=== PATIENT | female | born 1985 | race Caucasian/White ===

== ENCOUNTER 2019-11-07 07:30 | Inpatient (IN) ==
[2019-11-09] MEDS ORDERED: CITRIC ACID/SODIUM CITRATE 30 ML UDCUP PO ONE (06:22)
[2019-11-09] MEDS ORDERED: FAMOTIDINE 20 MG/2 ML VIAL IV ONE (06:22)
[2019-11-09] MEDS ORDERED: ceFAZolin 2,000 MG in PREMIX 1 EACH IV ONE (06:22)
[2019-11-09] MEDS ORDERED: OXYTOCIN/LR 20 UNIT/1,000 ML BAG IV PRN (06:31)
[2019-11-09] MEDS ORDERED: OXYTOCIN/LR 20 UNIT/1,000 ML BAG IV ONE ×2 (06:31→09:05)
[2019-11-09 06:46] LABS: Basophils % 0.2 % (0.0-0.8); Eosinophils % 0.2 % (0.00-10.9); Hematocrit 33.9 VOL% (35.7-47.0); Hemoglobin 10.7 GM/DL (12.0-16.0); Immature Granulocytes % 0.4 %; Immature Granulocytes Absolute 0.03 #; Lymphocytes # 2.1 10*3/uL (1.4-4.0); Lymphocytes % 25.6 % (21.3-54.2); Mean Corpuscular HGB Conc 31.6 GM/DL (32-36); Mean Corpuscular Volume 94.2 FL (87-102); Mean Platelet Volume 9.3 FL (9.6-12.0); Monocytes % 7.7 % (1.7-12.7); Neutrophils % 65.9 % (38.7-73.9); Platelet Count 258 T/CUMM (130-400); Red Cell Distribution Width 12.9 % (9.3-17.3)
[2019-11-09] MEDS: LACTATED RINGERS 1,000 ML IV SCH ×2 (06:46→07:02)
[2019-11-09 07:09] LABS: Alanine Aminotransferase 13 U/L (13-56); Albumin 2.5 G/DL (3.4-5.0); Alkaline Phosphatase 135 U/L (45-117); Aspartate Amino Transferase 10 U/L (0-37); Bilirubin,Total < 0.39 MG/DL (0.2-1.0); Blood Urea Nitrogen 11 MG/DL (7-18); Calcium 8.5 MG/DL (8.5-10.1); Estimated Glom Filtration Rate 107 ML/MIN; Glucose 80 MG/DL (74-106); Total Protein 6.5 G/DL (6.4-8.3)
[2019-11-09] MEDS ORDERED: CARBOPROST TROMETHAMINE 250 MCG/ML AMP IM ONE (07:48)
[2019-11-09] MEDS ORDERED: miSOPROStoL 200 MCG TABLET ONE (07:48)
[2019-11-09] MEDS ORDERED: TRANEXAMIC ACID 1,000 MG/10 ML VIAL ONE (07:48)
[2019-11-09] MEDS ORDERED: METHYLERGONOVINE 0.2 MG/1 ML AMP ONE (07:48)
[2019-11-09] MEDS ORDERED: ACETAMINOPHEN 325 MG TABLET PO PRN (09:05)
[2019-11-09] MEDS ORDERED: SIMETHICONE CHEW 80 MG TABLET PO PRN (09:05)
[2019-11-09] MEDS ORDERED: ONDANSETRON 4 MG/2 ML VIAL IV PRN (09:05)
[2019-11-09] MEDS ORDERED: RHO(D) IMMUNE GLOBULIN 300 MCG SYRINGE IM ONE (09:05)
[2019-11-09] MEDS ORDERED: oxyCODONE/ACETAMINOPHEN 5-325 MG TABLET PO PRN (09:06)
[2019-11-09 09:23] LABS: Apearance,Urine CLEAR (Clear); Bilirubin,Urine Negative (Negative); Blood, Urine Negative (Negative); Glucose,Urine (UA) Negative (Negative); Ketones,Urine Negative (Negative); Mucus,Urine Occasional /LPF (Occasional); Nitrite,Urine Negative (Negative); Protein,Urine Negative; RBC,Urine 1 /HPF (0-4); Urine Color Yellow (Yellow); Urine Urobilinogen < 2.0 EU/DL (0.2-1.0); WBC,Urine <1 /HPF (0-6)
[2019-11-09] MEDS ORDERED: LACTATED RINGERS 1,000 ML IV SCH (09:30)
[2019-11-09] MEDS ORDERED: BUPIVACAINE SPINAL 0.75% 2 ML AMP SPINAL ONE (10:31)
[2019-11-09] MEDS ORDERED: DEXAMETHASONE 4 MG/1 ML VIAL ONE (10:32)
[2019-11-09] MEDS ORDERED: ePHEDrine 50 MG/ML AMP ONE (10:32)
[2019-11-09] MEDS ORDERED: MORPHINE 10 MG/10 ML VIAL ONE (10:32)
[2019-11-09] MEDS ORDERED: ONDANSETRON 4 MG/2 ML VIAL ONE (10:32)
[2019-11-09] MEDS ORDERED: BUPIVACAINE MPF 0.25% 30 ML VIAL ONE (10:33)
[2019-11-09] MEDS ORDERED: PHENYLEPHRINE 1 MG/10 ML SYRINGE IV ONE (10:33)
[2019-11-09] MEDS ORDERED: diphenhydrAMINE 50 MG/1 ML VIAL IV ONE ×2 (11:41→13:54)
[2019-11-09] MEDS: ceFAZolin 1,000 MG in SYRINGE 1 EACH IV SCH ×2 (14:51→22:31)
[2019-11-09 17:20] LABS: Basophils % 0.1 % (0.0-0.8); Hematocrit 28.1 VOL% (35.7-47.0); Hemoglobin 9.1 GM/DL (12.0-16.0); Immature Granulocytes % 0.5 %; Immature Granulocytes Absolute 0.07 #; Lymphocytes # 0.9 10*3/uL (1.4-4.0); Lymphocytes % 6.8 % (21.3-54.2); Mean Corpuscular HGB Conc 32.4 GM/DL (32-36); Mean Corpuscular Volume 94.3 FL (87-102); Mean Platelet Volume 9.6 FL (9.6-12.0); Monocytes % 3.7 % (1.7-12.7); Neutrophils % 88.9 % (38.7-73.9); Platelet Count 223 T/CUMM (130-400); Red Blood Count 2.98 MC/CUMM (3.8-5.5); Red Cell Distribution Width 12.8 % (9.3-17.3); White Blood Count 13.6 T/CUMM (4-12)
[2019-11-09] MEDS ORDERED: diphenhydrAMINE CAP 25 MG CAPSULE PO PRN (18:10)
[2019-11-09] MEDS: DOCUSATE SODIUM 100 MG CAPSULE PO SCH (22:39)
[2019-11-09] MEDS: IBUPROFEN 800 MG TABLET PO PRN (22:39)
[2019-11-09] MEDS: diphenhydrAMINE CAP 25 MG CAPSULE PO PRN (22:39)
[2019-11-10] MEDS: diphenhydrAMINE CAP 25 MG CAPSULE PO PRN ×3 (04:39→14:55)
[2019-11-10 06:04] LABS: Basophils % 0.2 % (0.0-0.8); Eosinophils % 0.1 % (0.00-10.9); Hemoglobin 8.2 GM/DL (12.0-16.0); Immature Granulocytes % 0.4 %; Immature Granulocytes Absolute 0.04 #; Lymphocytes # 2.2 10*3/uL (1.4-4.0); Lymphocytes % 22.4 % (21.3-54.2); Mean Corpuscular HGB Conc 31.5 GM/DL (32-36); Mean Corpuscular Volume 94.2 FL (87-102); Mean Platelet Volume 9.5 FL (9.6-12.0); Monocytes % 7.9 % (1.7-12.7); Platelet Count 201 T/CUMM (130-400); Red Blood Count 2.76 MC/CUMM (3.8-5.5); Red Cell Distribution Width 12.9 % (9.3-17.3)
[2019-11-10] MEDS ORDERED: FERROUS SULFATE 325 MG TABLET PO SCH (09:00)
[2019-11-10] MEDS: DOCUSATE SODIUM 100 MG CAPSULE PO SCH ×2 (09:41→21:34)
[2019-11-10] MEDS: MULTIVITAMIN (PRENATAL) TABLET PO SCH (09:41)
[2019-11-10] MEDS: MAGNESIUM HYDROXIDE SUSP 30 ML UDCUP PO PRN ×2 (10:01→21:34)
[2019-11-10] MEDS: oxyCODONE/ACETAMINOPHEN 5-325 MG TABLET PO PRN ×2 (10:11→20:02)
[2019-11-10] MEDS: IBUPROFEN 800 MG TABLET PO PRN ×2 (14:55→23:12)
[2019-11-11] MEDS: oxyCODONE/ACETAMINOPHEN 5-325 MG TABLET PO PRN ×2 (05:18→11:17)
[2019-11-11 07:40] VITALS: BP 105/61
[2019-11-11] MEDS: MAGNESIUM HYDROXIDE SUSP 30 ML UDCUP PO PRN (08:23)
[2019-11-11] MEDS: DOCUSATE SODIUM 100 MG CAPSULE PO SCH (08:23)
[2019-11-11] MEDS: MULTIVITAMIN (PRENATAL) TABLET PO SCH (08:23)
== END 2019-11-11 13:15 | disposition home or self-care (01) | DRG 788 ==
LOC: N.LD 11-09 06:09 → N.OB 11-09 12:15
PROVIDERS: ADMIT Obstetrics & Gynecology; ATTEND Obstetrics & Gynecology
PROC: LDCSECT (ICD-10-PCS; 2019-11-09 07:30)